=== PATIENT | male | born 1985 | race African-American/Black ===

== ENCOUNTER 2017-11-20 22:19 | Emergency (ER) | payer MEDICAID ==
[~2017-11-20] VITALS: Ht 185.4 cm; Wt 98.0 kg
[2017-11-20 23:27] VITALS: BP 149/92
== END 2017-11-21 02:15 | disposition left against medical advice (07) ==
LOC: ER 22:19
DX: R51 Headache (principal); Z53.21 Procedure and treatment not carried out due to patient leaving prior to being seen by health care provider